=== PATIENT | male | born 1950 | race Hispanic/Latino ===

== ENCOUNTER 2018-05-22 12:32 | Emergency (ER) | payer SELFPAY ==
[2018-05-22] MEDS ORDERED: LIDOCAINE 5% TOPICAL PATCH TP ONE (13:16)
== END 2018-05-22 15:02 | disposition home or self-care (01) ==
LOC: EDH 12:32
DX: S29.012A Strain of muscle and tendon of back wall of thorax, initial encounter (principal); S20.229A Contusion of unspecified back wall of thorax, initial encounter; I10 Essential (primary) hypertension; E11.9 Type 2 diabetes mellitus without complications; E78.5 Hyperlipidemia, unspecified; Z87.891 Personal history of nicotine dependence; Z79.4 Long term (current) use of insulin; W01.198A Fall on same level from slipping, tripping and stumbling with subsequent striking against other object, initial encounter; Y93.01 Activity, walking, marching and hiking; Y92.89 Other specified places as the place of occurrence of the external cause; Y99.8 Other external cause status
CPT/HCPCS: 72072; 73562